=== PATIENT | male | born 1990 | race Caucasian/White ===

== ENCOUNTER 2022-01-24 23:23 | Emergency (ER) | payer MEDICAID, OTHER ==
[~2022-01-24] VITALS: Ht 177.8 cm; Wt 75.0 kg
[2022-01-25] MEDS ORDERED: DOXY150T5 PO (05:12)
[2022-01-25] MEDS ORDERED: GENTAMICIN SULF 40MG/ML 2ML VIAL IM ONE (05:15)
[2022-01-25] MEDS: AZITHROMYCIN 500 MG TABLET PO SCH ×2 (05:15→05:46)
[2022-01-25 05:21] LABS: CLARITY URINE CLEAR (CLEAR); COLOR URINE YELLOW (YELLOW); KETONES URINE NEGATIVE (NEGATIVE); LEUKOCYTE ESTERASE URINE 2+ (NEGATIVE); NITRITE URINE NEGATIVE (NEGATIVE); OCCULT BLOOD URINE NEGATIVE (NEGATIVE); PROTEIN URINE NEGATIVE (NEGATIVE); SPECIFIC GRAVITY URINE 1.014 (1.005-1.030)
[2022-01-25] MEDS ORDERED: GENTAMICIN SULF 40MG/ML 2ML VIAL IM NR (05:30)
[2022-01-25 06:15] VITALS: BP 114/79
[2022-01-29 04:07] LABS: NEISSERIA GONORRHOEAE NAA Negative (Negative)
== END 2022-01-25 06:15 | disposition home or self-care (01) ==
LOC: ER 23:23
DX: N39.0 Urinary tract infection, site not specified (principal); Z88.0 Allergy status to penicillin; Z98.890 Other specified postprocedural states
CPT/HCPCS: 81003; 87086; 87491; 87591; 96372; 99283; J1580